=== PATIENT | female | born 1985 | race Caucasian/White ===

== ENCOUNTER 2017-03-16 19:20 | Emergency (ER) | payer BC ==
[~2017-03-16] VITALS: Ht 154.9 cm; Wt 57.6 kg
[~2017-03-16 19:20] MED LIST: ASCA500 PO; CHOL400T PO; IBUP600T44 PO; PRENTAB26 PO
[2017-03-16 19:25] VITALS: TEMP 36.3; Ht 154.9 cm; Wt 57.6 kg
[2017-03-16] MEDS ORDERED: SODIUM CHLORIDE 0.9% 1000ML 1,000 ML IV STA ×3 (19:32→21:58)
[2017-03-16] MEDS ORDERED: ONDANSETRON INJ 2 MG/ML 2 ML VIAL IV STA ×2 (19:32→21:58)
--- NOTE | 2017-03-16 19:39 | EMERGENCY ROOM VISIT NOTE ---
History Report prepared by Shayy: Drew Ibrahim Under the Supervision of: Dr. Joe Nunez D.O. First contact with patient: 19:29 Chief Complaint: CHEST PAIN Stated Complaint: CHEST PAIN,SHORT OF BREATH,FEELS FAINT History of Present Illness The patient is a 32 year old female who presents to the Emergency Room with complaints of intermittent chest pain that began one week prior to arrival. The patient also complains of difficulty catching her breath that onset on week ago as well. She claims that she has been experiencing intermittent unusual heartbeats and palpitations. She has been becoming dizzy with standing lately. She notes that she has a history of bradycardia and syncope from several years ago while she was in high school. Last night she also began to experience lower abdominal pain. She denies any fever, swelling in the extremities, or urinary symptoms. She is currently nauseous. 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 Review of Systems See HPI for pertinent positives & negatives. A total of 10 systems reviewed and were otherwise negative. Past Medical & Surgical Medical Problems: (1) Endometriosis (2) (3) Premature rupture of membranes Surgical Problems: (1) H/O laparoscopy (2) H/O lymph node biopsy (3) S/P cholecystectomy (4) S/P tonsillectomy Family History Diabetes mellitus GRANDFATHER GRANDMOTHER Hypertension GRANDMOTHER Social History Smoking Status: Never Smoker Marital Status: Housing Status: lives with significant other Occupation Status: employed Current/Historical Medications Scheduled Ascorbic Acid (Vitamin C), 500 MG PO QPM Cetirizine (Zyrtec), 10 MG PO QPM Levothyroxine Sodium (Levothyroxine Sodium), 25 MCG PO DAILY Multivit/Min/Iron/Fol Ac/Pren ( Vitamin), 1 TAB PO DAILY Ondasetron Odt (Zofran Odt), 4 MG SL Q6H Ondasetron Odt (Zofran Odt), 4 MG SL Q6H Probiotic Product (Probiotic), 1 CAP PO HS Miscellaneous Medications Cholecalciferol (Vitamin D), 800 PO Allergies Coded Allergies: Sulfa Antibiotics (Verified Allergy, Mild, HIVES, 03/16/17) Sulfa Drugs (Unverified Allergy, Mild, RASH, 03/16/17) Physical Exam Vital Signs Date Time Temp Pulse Resp B/P Pulse Ox O2 Delivery O2 Flow Rate FiO2 03/16/17 23:54 85 18 97/56 98 Room Air 03/16/17 21:54 94 18 107/59 98 Room Air 99 104/55 102 87/57 03/16/17 21:09 88 18 108/59 100 Room Air 03/16/17 20:09 70 18 102/55 100 Room Air 03/16/17 20:08 100 Room Air 03/16/17 20:08 Room Air 03/16/17 19:57 100 Room Air 03/16/17 19:47 72 03/16/17 19:25 36.3 96 24 108/61 100 Room Air Physical Exam GENERAL: Patient is awake, alert, and very anxious appearing. Uncomfortable. EYES: The conjunctivae are clear. The pupils are round and reactive. EARS, NOSE, MOUTH AND THROAT: The nose is without any evidence of any deformity. Mucous membranes are dry tongue is midline NECK: The neck is nontender and supple. RESPIRATORY: Normal respiratory effort is noted there is no evidence of wheezing rhonchi or rales CARDIOVASCULAR: Regular rate and rhythm noted there no murmurs rubs or gallops normal S1 normal S2 GASTROINTESTINAL: The abdomen is soft. Bowel sounds are present in all quadrants. There is tenderness to palpitation diffusely across the abdomen. No specific guarding or rigidity. BACK: No midline tenderness or or step-off noted range of motion in flexion extension as well as rotation no signs of muscle spasm noted MUSCULOSKELETAL/EXTREMITIES: There is no evidence of gross deformity full range of motion is noted in the hips and shoulders SKIN: There is no obvious evidence of any rash. There are no petechiae, pallor or cyanosis noted. NEUROLOGIC: Patient is awake alert and oriented x3. Medical Decision & Procedures ER Provider Diagnostic Interpretation: Radiology results as stated below per my review and radiologist interpretation: ABDOMEN AND PELVIS CT WITH IV CONTRAST CT DOSE: 517.70 mGy.cm HISTORY: Generalized abdominal pain. TECHNIQUE: Multiaxial CT images of the abdomen and pelvis were performed following the use of intravenous contrast. COMPARISON STUDY: None. FINDINGS: No pneumoperitoneum. No pneumatosis. Cholecystectomy. The liver, pancreas, spleen, adrenal glands, and kidneys are unremarkable. No retroperitoneal lymphadenopathy. The bladder, uterus, bilateral adnexa are unremarkable. No bowel wall thickening or obstruction. Fluid-filled nondilated loops of large and small bowel. IMPRESSION: 1. No bowel wall thickening or obstruction. 2. Normal appendix. 3. Cholecystectomy. 4. Fluid-filled loops of nondilated large and small bowel. This may represent a gastroenteritis. Electronically signed by: Sherwin Alvarado M.D. 03/16/2017 9:00 PM Dictated Date/Time: 03/16/2017 8:55 PM CHEST CTA for PULMONARY ARTERIES CT DOSE: HISTORY: Short of breath. Chest pain. TECHNIQUE: Multiaxial CT images of the chest were performed following the intravenous administration of contrast to evaluate the pulmonary arteries. Maximal intensity projection images were also obtained. COMPARISON STUDY: None. FINDINGS: There is a normal caliber thoracic aorta with no evidence for dissection. There is no evidence for pulmonary embolus. No pleural effusions. No pneumothorax. The liver and spleen are unremarkable. No mediastinal or hilar lymphadenopathy. The central airways are patent. A punctate calcified granuloma within the base of the left lower lobe. A few scattered nodules within the lung bases. There are approximately 5 pulmonary nodules. The dominant nodule seen within the right lower lobe on image 101 measures 4 mm. IMPRESSION: No evidence for pulmonary embolus. A few subcentimeter pulmonary nodules measuring up to 4 mm. Please refer to the chart below for recommended follow-up. Please refer to below summary of Fleischner criteria recommendations for follow-up of incidental CT nodules (Marleny Conde, Guidelines for management of small pulmonary nodules detected on CT scans: A statement from the Fleischner Society, Radiology 237: [phone].) SOLID NODULES Solitary nodule size: <6 mm * Low risk patients: no follow-up needed * high risk patients: optional CT at 12 months Solitary nodule size: 6-8 mm * Low risk patients: follow-up at 6-12 months, then consider further follow-up at 18-24 months * high risk patients: initial follow-up CT at 6-12 months and then at 18-24 months if no change Solitary nodule size: >8 mm * either low or high risk patients - consider follow-up CT at 3 months, and/or CT-PET, and/or biopsy Multiple nodules size: <6 mm * Low risk patients: no routine follow-up * high risk patients: optional CT at 12 months Multiple nodules size: 6-8 mm * Low risk patients: follow-up at 3-6 months, then consider further follow-up at 18-24 months * high risk patients: follow-up at 3-6 months, then at 18-24 months if no change Multiple nodules size: >8 mm * Low risk patients: follow-up at 3-6 months, then consider further follow-up at 18-24 months * high risk patients: follow-up at 3-6 months, then at 18-24 months if no change Note: newly detected indeterminate nodule in persons 35 years of age or older. * Low risk patients: minimal or absent history of smoking and/or other known risk factors * high risk patients: history of smoking or of other known risk factors (e.g. first degree relative with lung cancer, or exposure to asbestos, radon, uranium) * if a nodule up to 8 mm is partly solid or is ground glass further follow-up is required after 24 months to exclude possible slow growing adenocarcinoma (SANJUANA) SUBSOLID NODULES Solitary pure ground-glass nodule * nodule size <6 mm - no CT follow-up required * nodule size >=6 mm - follow-up CT at 6-12 months, then every 2 years until 5 years Solitary part-solid nodule * nodule size <6 mm - no CT follow-up required * nodule size >=6 mm - follow-up CT at 3-6 months. If unchanged, and solid component remains <6 mm, then annual follow-up for 5 years Multiple subsolid nodules * nodule size <6 mm - follow-up CT at 3-6 months, consider further follow-up at 2 and 4 years if stable * nodule size >=6 mm - follow-up CT at 3-6 months, subsequent management based on the most suspicious nodule(s) Electronically signed by: Sherwin Alvarado M.D. 03/16/2017 8:55 PM Dictated Date/Time: 03/16/2017 8:47 PM CHEST ONE VIEW PORTABLE HISTORY: EVALUATE RESPIRATORY DISTRESS.DYSPNEA COMPARISON: None. FINDINGS: The lungs are clear. Cardiac silhouette is normal in size. No pleural effusions. No pneumothorax. There are right supraclavicular surgical clips. IMPRESSION: No acute process. Electronically signed by: Sherwin Alvarado M.D. 03/16/2017 8:11 PM Dictated Date/Time: 03/16/2017 8:10 PM Laboratory Results 03/16/17 19:51 Red Blood Count 4.96, Mean Corpuscular Volume 87.9, Mean Corpuscular Hemoglobin 29.2, Mean Corpuscular Hemoglobin Concent 33.3, Mean Platelet Volume 10.3, Neutrophils (%) (Auto) 77.6, Lymphocytes (%) (Auto) 15.7, Monocytes (%) (Auto) 6.0, Eosinophils (%) (Auto) 0.5, Basophils (%) (Auto) 0.0, Neutrophils # (Auto) 3.21, Lymphocytes # (Auto) 0.65, Monocytes # (Auto) 0.25, Eosinophils # (Auto) 0.02, Basophils # (Auto) 0.00 03/16/17 19:51 Test 03/16/17 19:51 03/16/17 19:57 03/16/17 21:07 03/16/17 22:25 White Blood Count 4.14 K/uL (4.8-10.8) Red Blood Count 4.96 M/uL (4.2-5.4) Hemoglobin 14.5 g/dL (12.0-16.0) Hematocrit 43.6 % (37-47) Mean Corpuscular Volume 87.9 fL (80-100) Mean Corpuscular Hemoglobin 29.2 pg (25-34) Mean Corpuscular Hemoglobin Concent 33.3 g/dl (32-36) Platelet Count 240 K/uL (130-400) Mean Platelet Volume 10.3 fL (7.4-10.4) Neutrophils (%) (Auto) 77.6 % Lymphocytes (%) (Auto) 15.7 % Monocytes (%) (Auto) 6.0 % Eosinophils (%) (Auto) 0.5 % Basophils (%) (Auto) 0.0 % Neutrophils # (Auto) 3.21 K/uL (1.4-6.5) Lymphocytes # (Auto) 0.65 K/uL (1.2-3.4) Monocytes # (Auto) 0.25 K/uL (0.11-0.59) Eosinophils # (Auto) 0.02 K/uL (0-0.5) Basophils # (Auto) 0.00 K/uL (0-0.2) RDW Standard Deviation 42.9 fL (36.4-46.3) RDW Coefficient of Variation 13.4 % (11.5-14.5) Immature Granulocyte % (Auto) 0.2 % Immature Granulocyte # (Auto) 0.01 K/uL (0.00-0.02) Prothrombin Time 10.9 SECONDS (9.0-12.0) Prothromb Time International Ratio 1.0 (0.9-1.1) Activated Partial Thromboplast Time 26.1 SECONDS (21.0-31.0) Partial Thromboplastin Ratio 1.0 Est Creatinine Clear Calc Drug Dose 83.9 ml/min Estimated GFR () 114.7 Estimated GFR (Non- 98.9 BUN/Creatinine Ratio 17.0 (10-20) Calcium Level 7.9 mg/dl (8.5-10.1) Magnesium Level 2.2 mg/dl (1.8-2.4) Total Bilirubin 0.4 mg/dl (0.2-1) Aspartate Amino Transf (AST/SGOT) 161 U/L (15-37) Alanine Aminotransferase (ALT/SGPT) 95 U/L (12-78) Alkaline Phosphatase 79 U/L (45-117) Troponin I < 0.015 ng/ml (0-0.045) Total Protein 7.0 gm/dl (6.4-8.2) Albumin 3.8 gm/dl (3.4-5.0) Globulin 3.2 gm/dl (2.5-4.0) Albumin/Globulin Ratio 1.2 (0.9-2) Thyroid Stimulating Hormone (TSH) 1.880 uIu/ml (0.300-4.500) Free Thyroxine 1.14 ng/dl (0.80-1.60) Human Chorionic Gonadotropin, Qual NEG (NEG) Bedside D-Dimer > 450 ng/mlFEU (0-450) Urine Color YELLOW Urine Appearance CLEAR (CLEAR) Urine pH 8.0 (4.5-7.5) Urine Specific [place] 1.023 (1.000-1.030) Urine Protein NEG (NEG) Urine Glucose (UA) NEG (NEG) Urine Ketones NEG (NEG) Urine Occult Blood NEG (NEG) Urine Nitrite NEG (NEG) Urine Bilirubin NEG (NEG) Urine Urobilinogen NEG (NEG) Urine Leukocyte Esterase NEG (NEG) Bedside Lactic Acid Venous 0.77 mmol/L (0.90-1.70) Test 03/16/17 22:29 03/16/17 22:32 Bedside Hemoglobin 12.2 g/dl (12.0-16.0) Bedside Hematocrit 36 % (37-47) Bedside Sodium 142 mEq/L (135-144) Bedside Potassium 3.5 mEq/L (3.3-5.0) Bedside Chloride 106 mEq/L (101-112) Bedside Total CO2 22 mEq/l (24-31) Anion Gap 19.0 mmol/L (16-25) Bedside Blood Urea Nitrogen 11 mg/dl (7-18) Bedside Creatinine 0.7 mg/dl (0.6-1.3) Bedside Glucose (other) 109 mg/dl (70-99) Bedside Ionized Calcium (Dany) 1.02 mmol/l (1.12-1.32) Bedside Troponin I 0.000 ng/ml (0-0.045) Laboratory results per my review. Medications Administered Medications (Trade) Dose Ordered Sig/Stewart Route Start Time Stop Time Status Last Admin Dose Admin Sodium Chloride (Nss 1000ml) 1,000 ml @ 999 mls/hr Q1H1M STAT IV 03/16/17 19:32 03/16/17 20:32 DC 03/16/17 20:02 999 MLS/HR Ondansetron HCl 4 mg 4 mg NOW STAT IV 03/16/17 19:32 03/16/17 19:33 DC 03/16/17 20:01 4 MG Sodium Chloride 1,000 ml @ 999 mls/hr Q1H1M STAT IV 03/16/17 20:24 03/16/17 21:24 DC 03/16/17 21:06 999 MLS/HR Sodium Chloride (Nss 1000ml) 1,000 ml @ 999 mls/hr Q1H1M STAT IV 03/16/17 21:58 03/16/17 22:58 DC 03/16/17 22:35 999 MLS/HR Ondansetron HCl (Zofran Inj) 4 mg NOW STAT IV 03/16/17 21:58 03/16/17 21:59 DC 03/16/17 22:33 4 MG Metoclopramide HCl (Reglan Tab) 5 mg Q6 PRN PO 03/16/17 23:15 03/17/17 01:34 DC 03/17/17 00:06 5 MG ECG Indication: chest pain Rate (beats per minute): 69 Findings: no acute ischemic change, no ectopy ED Course 1929: The patient was evaluated in room B10. A complete history and physical examination were performed. 1931: Ordered Zofran 4 mg IV, Sodium Chloride 1000 mL @ 999 mL/hr IV. 2023: Ordered Sodium Chloride 1000 mL @ 999 mL/hr IV. 2157: Ordered Zofran 4 mg IV, Sodium Chloride 1000 mL @ 999 mL/hr IV. 2212: I discussed the case with Dr. Carlos SANCHEZ Hospitalist at this time, he will evaluate the patient for further treatment. Medical Decision Medication Reconciliation: I attest that I have personally reviewed the patient' s current medications list. Differential diagnosis: Etiologies such as cardiac ischemia, aortic dissection, pulmonary embolism, pneumonia, pneumothorax, musculoskeletal, infections, pericarditis, myocarditis , esophageal rupture, gastrointestinal, as well as others were entertained. Nursing notes reviewed. The patient is a 32-year-old female who presented to the emergency department for an evaluation of palpitations and dizziness. She describes chest discomfort as well as palpitations. 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 She states this is a typical for her. She was found to be normal sinus rhythm with no significant ectopy ST segment abnormalities. The patient's d-dimer is elevated which led to a CT the chest however her abdominal exam did reveal significant tenderness and I was concerned there could be some underlying cause for her palpitations as well as her hypertension. The patient was treated with IV fluids in the emergency department. She was also treated with IV antiemetics. CT the chest did not reveal signs of intrathoracic pathology however she was found have multiple loops of small bowel which were fluid filled which could be consistent with gastritis. I discussed her case with the on-call [facility] hospitalist group. They've agreed to evaluate the patient in emergency department for further management and disposition. I discussed the patient's laboratory and radiographic studies with her. Consults Time Called: [phone] Consulting Physician: Dr. Carlos SANCHEZ Hospitalist Returned Call: [phone] I discussed the case with Dr. Carlos SANCHEZ Hospitalist at this time, he will evaluate the patient for further treatment. Impression Primary Impression: Orthostatic hypotension Additional Impressions: Palpitation Abdominal pain Scribe Attestation The scribe's documentation has been prepared under my direction and personally reviewed by me in its entirety. I confirm that the note above accurately reflects all work, treatment, procedures, and medical decision making performed by me. Departure Information Dispostion Being Evaluated By Hospitalist Prescriptions Ondasetron Odt (ZOFRAN ODT) 4 Mg Tab 4 MG SL Q6H for Nausea, #10 TAB Prov: Luis Rodrigues M.D. 03/16/17 Ondasetron Odt (ZOFRAN ODT) 4 Mg Tab 4 MG SL Q6H for Nausea, #20 TAB Prov: Joe Nunez, 03/16/17 Referrals Sundeep Mata D.O. (PCP) Patient Instructions My [facility] Problem Qualifiers Additional Impressions: Abdominal pain Abdominal location: generalized Qualified Codes: R10.84 - Generalized abdominal pain
[2017-03-16 20:01] LABS: COMPLETE YES; EOS % 0.5 %; HEMATOCRIT 43.6 % (37-47); IG% 0.2 %; LYMPH % 15.7 %; LYMPH ABS # 0.65 K/uL (1.2-3.4); MEAN CELL VOLUME 87.9 fL (80-100); MEAN CORPUSCULAR HEMOGLOBIN 29.2 pg (25-34); MEAN CORPUSCULAR HGB CONC 33.3 g/dl (32-36); MEAN PLATELET VOLUME 10.3 fL (7.4-10.4); NEUT % 77.6 %; PLATELET COUNT 240 K/uL (130-400); RED BLOOD COUNT 4.96 M/uL (4.2-5.4); WHITE BLOOD COUNT 4.14 K/uL (4.8-10.8)
[2017-03-16 20:08] VITALS: O2SAT 100
[2017-03-16 20:11] LABS: PROTHROMBIN TIME (PATIENT) 10.9 SECONDS (9.0-12.0)
--- NOTE | 2017-03-16 20:13 | DIAGNOSTIC IMAGING REPORT ---
CHEST ONE VIEW PORTABLE HISTORY: EVALUATE RESPIRATORY DISTRESS.DYSPNEA COMPARISON: None. FINDINGS: The lungs are clear. Cardiac silhouette is normal in size. No pleural effusions. No pneumothorax. There are right supraclavicular surgical clips. IMPRESSION: No acute process. Electronically signed by: Sherwin Alvarado M.D. 03/16/2017 8:11 PM Dictated Date/Time: 03/16/2017 8:10 PM
[2017-03-16] MEDS ORDERED: CETI10TA84 PO (20:15)
[2017-03-16] MEDS ORDERED: LEVO25TA5 PO (20:15)
[2017-03-16] MEDS ORDERED: MISCCAP80 PO (20:15)
[2017-03-16 20:18] LABS: ALT/SGPT 95 U/L (12-78); AST/SGOT 161 U/L (15-37); BLOOD UREA NITROGEN 14 mg/dl (7-18); CALCIUM 7.9 mg/dl (8.5-10.1); CARBON DIOXIDE 31 mmol/L (21-32); CHLORIDE 106 mmol/L (98-107); GLUCOSE 102 mg/dl (70-99); MAGNESIUM 2.2 mg/dl (1.8-2.4); POTASSIUM 3.3 mmol/L (3.5-5.1); SODIUM 142 mmol/L (136-145)
[2017-03-16 20:25] LABS: PREG INTERNAL NEGATIVE QC NEG CLEAR BACKGROUND; PREG INTERNAL POSITIVE QC POS CONTROL LINE
[2017-03-16 20:29] LABS: ALB/GLOB RATIO 1.2 (0.9-2); ALKALINE PHOSPHATASE 79 U/L (45-117)
[2017-03-16] MEDS ORDERED: OPTIRAY 320 IV PRN (20:30)
[2017-03-16 20:34] LABS: ISTAT CREATININE 0.7 mg/dl (0.6-1.3); ISTAT IONIZED CALCIUM 1.11 mmol/l (1.12-1.32)
--- NOTE | 2017-03-16 20:56 | DIAGNOSTIC IMAGING REPORT ---
CHEST CTA for PULMONARY ARTERIES CT DOSE: HISTORY: Short of breath. Chest pain. TECHNIQUE: Multiaxial CT images of the chest were performed following the intravenous administration of contrast to evaluate the pulmonary arteries. Maximal intensity projection images were also obtained. COMPARISON STUDY: None. FINDINGS: There is a normal caliber thoracic aorta with no evidence for dissection. There is no evidence for pulmonary embolus. No pleural effusions. No pneumothorax. The liver and spleen are unremarkable. No mediastinal or hilar lymphadenopathy. The central airways are patent. A punctate calcified granuloma within the base of the left lower lobe. A few scattered nodules within the lung bases. There are approximately 5 pulmonary nodules. The dominant nodule seen within the right lower lobe on image 101 measures 4 mm. IMPRESSION: No evidence for pulmonary embolus. A few subcentimeter pulmonary nodules measuring up to 4 mm. Please refer to the chart below for recommended follow-up. Please refer to below summary of Fleischner criteria recommendations for follow-up of incidental CT nodules (Marleny Conde, Guidelines for management of small pulmonary nodules detected on CT scans: A statement from the Fleischner Society, Radiology 237: [phone].) SOLID NODULES Solitary nodule size: <6 mm * Low risk patients: no follow-up needed * high risk patients: optional CT at 12 months Solitary nodule size: 6-8 mm * Low risk patients: follow-up at 6-12 months, then consider further follow-up at 18-24 months * high risk patients: initial follow-up CT at 6-12 months and then at 18-24 months if no change Solitary nodule size: >8 mm * either low or high risk patients - consider follow-up CT at 3 months, and/or CT-PET, and/or biopsy Multiple nodules size: <6 mm * Low risk patients: no routine follow-up * high risk patients: optional CT at 12 months Multiple nodules size: 6-8 mm * Low risk patients: follow-up at 3-6 months, then consider further follow-up at 18-24 months * high risk patients: follow-up at 3-6 months, then at 18-24 months if no change Multiple nodules size: >8 mm * Low risk patients: follow-up at 3-6 months, then consider further follow-up at 18-24 months * high risk patients: follow-up at 3-6 months, then at 18-24 months if no change Note: newly detected indeterminate nodule in persons 35 years of age or older. * Low risk patients: minimal or absent history of smoking and/or other known risk factors * high risk patients: history of smoking or of other known risk factors (e.g. first degree relative with lung cancer, or exposure to asbestos, radon, uranium) * if a nodule up to 8 mm is partly solid or is ground glass further follow-up is required after 24 months to exclude possible slow growing adenocarcinoma (SANJUANA) SUBSOLID NODULES Solitary pure ground-glass nodule * nodule size <6 mm - no CT follow-up required * nodule size >=6 mm - follow-up CT at 6-12 months, then every 2 years until 5 years Solitary part-solid nodule * nodule size <6 mm - no CT follow-up required * nodule size >=6 mm - follow-up CT at 3-6 months. If unchanged, and solid component remains <6 mm, then annual follow-up for 5 years Multiple subsolid nodules * nodule size <6 mm - follow-up CT at 3-6 months, consider further follow-up at 2 and 4 years if stable * nodule size >=6 mm - follow-up CT at 3-6 months, subsequent management based on the most suspicious nodule(s) Electronically signed by: Sherwin Alvarado M.D. 03/16/2017 8:55 PM Dictated Date/Time: 03/16/2017 8:47 PM
--- NOTE | 2017-03-16 21:01 | DIAGNOSTIC IMAGING REPORT ---
ABDOMEN AND PELVIS CT WITH IV CONTRAST CT DOSE: 517.70 mGy.cm HISTORY: Generalized abdominal pain. TECHNIQUE: Multiaxial CT images of the abdomen and pelvis were performed following the use of intravenous contrast. COMPARISON STUDY: None. FINDINGS: No pneumoperitoneum. No pneumatosis. Cholecystectomy. The liver, pancreas, spleen, adrenal glands, and kidneys are unremarkable. No retroperitoneal lymphadenopathy. The bladder, uterus, bilateral adnexa are unremarkable. No bowel wall thickening or obstruction. Fluid-filled nondilated loops of large and small bowel. IMPRESSION: 1. No bowel wall thickening or obstruction. 2. Normal appendix. 3. Cholecystectomy. 4. Fluid-filled loops of nondilated large and small bowel. This may represent a gastroenteritis. Electronically signed by: Sherwin Alvarado M.D. 03/16/2017 9:00 PM Dictated Date/Time: 03/16/2017 8:55 PM
[2017-03-16 21:25] LABS: URINE APPEARANCE CLEAR (CLEAR); URINE BILIRUBIN NEG (NEG); URINE COLOR YELLOW; URINE NITRITE NEG (NEG); URINE SPECIFIC GRAVITY 1.023 (1.000-1.030); UROBILINOGEN NEG (NEG)
[2017-03-16 21:31] LABS: MANUAL MICROSCOPIC REQUIRED? NO; REVIEW REQ? NO
[2017-03-16] MEDS ORDERED: ONDA4TAB10 SL ×2 (22:26→23:13)
[2017-03-16 22:43] LABS: ISTAT CREATININE 0.7 mg/dl (0.6-1.3); ISTAT HEMOGLOBIN 12.2 g/dl (12.0-16.0); ISTAT IONIZED CALCIUM 1.02 mmol/l (1.12-1.32)
--- NOTE | 2017-03-16 23:12 | EMERGENCY ROOM VISIT NOTE ---
ED Visit Note This patient was initially seen by Dr. Nunez. His plan was to have the hospitalist service evaluate the patient for possible admission. Should they decide to send her home he requested that the patient be discharged with Zofran. The hospitalist did assess the patient and felt that the patient was okay for discharge as per her own wish. The patient was therefore sent home with Dr. Nunez's discharge instructions and a prescription for Zofran.
[2017-03-16] MEDS ORDERED: METOCLOPRAMIDE HCL 5 MG TAB PO PRN (23:15)
--- NOTE | 2017-03-16 23:24 | Medical Consult ---
Consultation Date of Consultation: March 16, 2017. Attending Physician: Enrique Reason for Consultation: hypotension History of Present Illness This is a 32 yo f that presented to the ED after experiencing sudden dyspnea , presyncope and tachycardia. The episode occurred when she was sitting at [employer] and she first felt the dyspnea. This resolved within a few minutes however because of the intensity of the episode she wanted to be evaluated in the ED. She also is suffering from nausea currently without vomiting. She has had several of these episodes which are short lived and associated with tachycardia over the past couple of weeks. She has never had a syncopal episode. She was worked up when she was 19 for hypotensive episodes however these were associated with bradycardia and the work up was negative. She notes this was a "period of time in my life where I was eating very poorly." No history of arrhythmias in her family. No TIA/ stroke or IL in the family or for her. She is very active and works out on a regular basis. Has a history of hypothyroidism and is taking Synthroid. She is currently taking cetirizine without pseudoephedrine . She was evaluated in the ED and was found to have orthostatic hypotension, no significant abnormalities in her labs. No arrhythmia was noted on the monitor and QTc is WNL. Past Medical/Surgical History Medical Problems: (1) Abdominal pain Status: Acute (2) Orthostatic hypotension Status: Acute (3) Palpitation Status: Acute Family History Diabetes mellitus GRANDFATHER GRANDMOTHER Hypertension GRANDMOTHER Social History Smoking Status: Never Smoker Smokeless Tobacco Use: No Alcohol Use: socially Drug Use: none Marital Status: Housing Status: lives with significant other Occupation Status: employed Allergies Coded Allergies: Sulfa Antibiotics (Verified Allergy, Mild, HIVES, 03/16/17) Sulfa Drugs (Unverified Allergy, Mild, RASH, 03/16/17) Current Inpatient Medications Current Inpatient Medications Medications (Trade) Dose Ordered Sig/Stewart Route Start Time Stop Time Status Last Admin Dose Admin Ioversol (Optiray 320) 100 ml UD PRN IV 03/16/17 20:30 03/20/17 20:29 Metoclopramide HCl (Reglan Tab) 5 mg Q6 PRN PO 03/16/17 23:15 04/15/17 23:14 Review of Systems Constitutional: No chills, No fever Eyes: No worsening of vision ENT: No hearing loss Respiratory: + dyspnea at rest, No cough, No dyspnea on exertion, No shortness of breath, No sputum, No wheezing Cardiovascular: + chest pain, + palpitations Abdomen: + nausea, No constipation, No diarrhea, No pain, No vomiting Musculoskeletal: No joint pain, No muscle pain Genitourinary - Female: No dysuria Neurologic: No balance problems, No numbness/tingling, No weakness Psychiatric: No depression symptoms Endocrine: No fatigue Integumentary: No rash Physical Exam Date Time Temp Pulse Resp B/P Pulse Ox O2 Delivery O2 Flow Rate FiO2 03/16/17 21:54 94 18 107/59 98 Room Air 99 104/55 102 87/57 03/16/17 21:09 88 18 108/59 100 Room Air 03/16/17 20:09 70 18 102/55 100 Room Air 03/16/17 20:08 100 Room Air 03/16/17 20:08 Room Air 03/16/17 19:57 100 Room Air 03/16/17 19:47 72 03/16/17 19:25 36.3 96 24 108/61 100 Room Air General Appearance: no apparent distress Head: normocephalic, atraumatic ENT: normal ENT inspection Neck: supple Respiratory/Chest: normal breath sounds, no respiratory distress, no accessory muscle use Cardiovascular: regular rate, rhythm, no murmur Abdomen/GI: normal bowel sounds, non tender, soft Back: normal inspection Extremities/Musculoskelatal: normal inspection, no pedal edema Neurologic/Psych: alert, normal mood/affect, oriented x 3 Skin: normal color, warm/dry, no rash Lymphatic: no adenopathy Laboratory Results Last 24 Hours Test 03/16/17 19:51 03/16/17 19:57 03/16/17 19:59 03/16/17 21:07 White Blood Count 4.14 K/uL Red Blood Count 4.96 M/uL Hemoglobin 14.5 g/dL Hematocrit 43.6 % Mean Corpuscular Volume 87.9 fL Mean Corpuscular Hemoglobin 29.2 pg Mean Corpuscular Hemoglobin Concent 33.3 g/dl Platelet Count 240 K/uL Mean Platelet Volume 10.3 fL Neutrophils (%) (Auto) 77.6 % Lymphocytes (%) (Auto) 15.7 % Monocytes (%) (Auto) 6.0 % Eosinophils (%) (Auto) 0.5 % Basophils (%) (Auto) 0.0 % Neutrophils # (Auto) 3.21 K/uL Lymphocytes # (Auto) 0.65 K/uL Monocytes # (Auto) 0.25 K/uL Eosinophils # (Auto) 0.02 K/uL Basophils # (Auto) 0.00 K/uL RDW Standard Deviation 42.9 fL RDW Coefficient of Variation 13.4 % Immature Granulocyte % (Auto) 0.2 % Immature Granulocyte # (Auto) 0.01 K/uL Prothrombin Time 10.9 SECONDS Prothromb Time International Ratio 1.0 Activated Partial Thromboplast Time 26.1 SECONDS Partial Thromboplastin Ratio 1.0 Sodium Level 142 mmol/L Potassium Level 3.3 mmol/L Chloride Level 106 mmol/L Carbon Dioxide Level 31 mmol/L Anion Gap 5.0 mmol/L 22.0 mmol/L Blood Urea Nitrogen 14 mg/dl Creatinine 0.80 mg/dl Est Creatinine Clear Calc Drug Dose 83.9 ml/min Estimated GFR () 114.7 Estimated GFR (Non- 98.9 BUN/Creatinine Ratio 17.0 Random Glucose 102 mg/dl Calcium Level 7.9 mg/dl Magnesium Level 2.2 mg/dl Total Bilirubin 0.4 mg/dl Aspartate Amino Transf (AST/SGOT) 161 U/L Alanine Aminotransferase (ALT/SGPT) 95 U/L Alkaline Phosphatase 79 U/L Troponin I < 0.015 ng/ml Total Protein 7.0 gm/dl Albumin 3.8 gm/dl Globulin 3.2 gm/dl Albumin/Globulin Ratio 1.2 Thyroid Stimulating Hormone (TSH) 1.880 uIu/ml Free Thyroxine 1.14 ng/dl Human Chorionic Gonadotropin, Qual NEG Bedside D-Dimer > 450 ng/mlFEU Bedside Hemoglobin 15.0 g/dl Bedside Hematocrit 44 % Bedside Sodium 141 mEq/L Bedside Potassium 3.3 mEq/L Bedside Chloride 99 mEq/L Bedside Total CO2 24 mEq/l Bedside Blood Urea Nitrogen 15 mg/dl Bedside Creatinine 0.7 mg/dl Bedside Glucose (other) 104 mg/dl Bedside Ionized Calcium (Dany) 1.11 mmol/l Urine Color YELLOW Urine Appearance CLEAR Urine pH 8.0 Urine Specific [place] 1.023 Urine Protein NEG Urine Glucose (UA) NEG Urine Ketones NEG Urine Occult Blood NEG Urine Nitrite NEG Urine Bilirubin NEG Urine Urobilinogen NEG Urine Leukocyte Esterase NEG Test 5/28/17 22:25 03/16/17 22:29 03/16/17 22:32 Bedside Lactic Acid Venous 0.77 mmol/L Bedside Hemoglobin 12.2 g/dl Bedside Hematocrit 36 % Bedside Sodium 142 mEq/L Bedside Potassium 3.5 mEq/L Bedside Chloride 106 mEq/L Bedside Total CO2 22 mEq/l Anion Gap 19.0 mmol/L Bedside Blood Urea Nitrogen 11 mg/dl Bedside Creatinine 0.7 mg/dl Bedside Glucose (other) 109 mg/dl Bedside Ionized Calcium (Dany) 1.02 mmol/l Bedside Troponin I 0.000 ng/ml Assessment & Plan This is a 32 yo f that is being evaluated for presyncopal episode associated with tachycardia and hypotension. Differential includes but is not limited to POTS, dehydration,IL, arrhythmia. The patient's 90 minute troponin was negative and patient is at low risk for IL so patient would actually benefit from outpt work up that includes a holter monitor, echo and potentially a stress test. We did discuss the benefit of staying overnight versus work up in the outpt setting and patient would prefer to have close follow up with PCP which is reasonable. She was also advised to refrain from using Zofran or cetirizine as this are arrhythmogenic. She was d/c with a home pack of Reglan. Resident Physician Supervision Note: I was present with Dr. Palacios during the history and exam. I discussed the case with the resident and agree with the findings and plan as documented in the note. Any exceptions or clarifications are listed here: 32 y/o F presenting with palpitations, CP, anxiety - low BP while in ER although this may be baseline Pt in generally good health - exercises rigorously daily OE AAO x 3 S1,2 R CTAB NT, ND, BS+ no CCE P: 2nd set enzymes obtained - pt monitored for a few hours consider outpt echo > stress > Halter Told to avoid Zyrtec or other pro-arrhythmics as structural hrt disease or CAD is unlikely No abnorms on labs or EKG Pt D/Cd for outpt f/u - was offered option of inopt treatment - d/c in conjunction with ER attending Documented By: Jean Claude Gonzalez Additional Copies To Sundeep Mata D.O.
[2017-03-16 23:54] VITALS: BP 97/56; PULSE 85; O2SAT 98
[2017-03-16] MEDS ORDERED: ONDANSETRON HOME PACK 4MG OD TAB ONE (23:57)
[2017-03-17] MEDS ORDERED: EMPTY 8 DRAM VIAL ONE (00:03)
== END 2017-03-17 00:20 | disposition home or self-care (01) ==
LOC: C.EDB 19:21
DX: I95.1 Orthostatic hypotension (principal); R00.2 Palpitations; R10.30 Lower abdominal pain, unspecified; R91.8 Other nonspecific abnormal finding of lung field; N80.9 Endometriosis, unspecified; Z83.3 Family history of diabetes mellitus; Z82.49 Family history of ischemic heart disease and other diseases of the circulatory system

== ENCOUNTER 2017-12-25 19:07 | Emergency (ER) | payer BC ==
[~2017-12-25] VITALS: Ht 154.9 cm; Wt 57.5 kg
[~2017-12-25 19:07] MED LIST changes: -IBUP600T44 PO; +MISCCAP80 PO; +ONDA4TAB10 SL
[2017-12-25 19:11] VITALS: TEMP 36.6; Ht 154.9 cm; Wt 57.5 kg
[2017-12-25] MEDS ORDERED: LEVO25TA5 PO (20:15)
[2017-12-25] MEDS ORDERED: CETI10TA84 PO (20:15)
--- NOTE | 2017-12-25 20:24 | EMERGENCY ROOM VISIT NOTE ---
History Report prepared by Shayy: Deny Mcleod Under the Supervision of: Dr. Scott Mike M.D. First contact with patient: 19:34 Chief Complaint: ILLNESS Stated Complaint: PALPITATIONS, HEADACHES History of Present Illness The patient is a 32 year old female with a past medical history of Kikuchi-Khadar disease, hypothyroidism, pulmonary nodules, and Raynaud's who presents to the ED with a cc of constant bone aches beginning four months ago. Positive night sweats, loss of appetite, leg swelling, headaches, and right arm weakness. Negative fever. The patient states that she was diagnosed with Kikuchi -Khadar disease and has been monitoring her white counts since. She notes that she noticed that her white counts started trending downward six months ago. She reports that her bone aches are mainly located in her mid to lower back , pelvis, and anterior legs. The patient states that her periods used to last a steady 7 days, but now only last for 3 days. She notes that she has a family history of leukemia and thyroid cancer. Source of History: patient Onset: four months ago Position: other (mid to lower back, pelvis, and anterior legs) Quality: ache Timing: constant Associated Symptoms: + headache, No fevers Note: The patient also complains of downward trending white counts, night sweats, loss of appetite, leg swelling, and right arm weakness. Review of Systems See HPI for pertinent positives and negatives. A total of ten systems were reviewed and were otherwise negative. Past Medical & Surgical Medical Problems: (1) Endometriosis (2) Hypothyroidism (3) Kikuchi disease (4) (5) Premature rupture of membranes (6) Pulmonary nodule (7) Raynaud disease Surgical Problems: (1) H/O laparoscopy (2) H/O lymph node biopsy (3) S/P cholecystectomy (4) S/P tonsillectomy Family History Diabetes mellitus GRANDFATHER GRANDMOTHER FHx: leukemia FHx: thyroid cancer Hypertension GRANDMOTHER Social History Smoking Status: Never Smoker Drug Use: none Marital Status: Housing Status: lives with family Occupation Status: employed Current/Historical Medications Scheduled Ascorbic Acid (Vitamin C), 500 MG PO QPM Cetirizine (Zyrtec), 10 MG PO QPM Hydroxyzine Pamoate (Vistaril), 1 CAP PO BID Lactobacillus (Probiotic), 1 CAP PO HS Levothyroxine Sodium (Levothyroxine Sodium), 25 MCG PO DAILY Multivit/Min/Iron/Fol Ac/Pren ( Vitamin), 1 TAB PO DAILY Allergies Coded Allergies: Sulfa Antibiotics (Verified Allergy, Mild, HIVES, 12/25/17) Sulfa Drugs (Unverified Allergy, Mild, RASH, 12/25/17) Physical Exam Vital Signs Date Time Temp Pulse Resp B/P (MAP) Pulse Ox O2 Delivery O2 Flow Rate FiO2 12/25/17 23:22 65 16 101/72 98 12/25/17 22:45 59 18 95/60 98 Room Air 12/25/17 20:48 54 16 106/60 100 Room Air 12/25/17 19:11 36.6 74 18 128/80 100 Room Air Physical Exam GENERAL: Awake, alert, well-appearing, NAD HENT: Normocephalic, atraumatic, no signs of meningismus. EYES: Normal conjunctiva. Sclera non-icteric. NECK: Supple. No nuchal rigidity. FROM. RESPIRATORY: CTAB, no rhonchi, wheezing, crackles CARDIAC: RRR, no MRG ABDOMEN: Soft, NTND, BS+ MSK: No chest wall TTP, no LE edema NEURO: GCS 15, CN 2-12 intact, moves all 4s on command SKIN: No rash or jaundice noted. Medical Decision & Procedures ER Provider Diagnostic Interpretation: Radiology results as stated below per my review and radiologist interpretation: HEAD WITHOUT CONTRAST (CT) FINDINGS: No acute intracranial hemorrhage, midline shift, intracranial mass, hydrocephalus, territorial ischemia or abnormal extra-axial collection. The calvarium is intact. The paranasal sinuses, mastoid air cells, and middle ear cavities are clear. IMPRESSION: No acute intracranial abnormality. The above report was generated using voice recognition software. It may contain grammatical, syntax or spelling errors. Electronically signed by: Rachid Casanova M.D. 12/25/2017 8:49 PM CHEST ONE VIEW PORTABLE FINDINGS: Nodular opacities projecting over the bilateral lung bases suggests nipple shadows. Cardiomediastinal and hilar silhouettes are within normal limits. There is no pneumothorax, pleural effusion, focal airspace consolidation or overt pulmonary edema. The bones of the chest appear grossly intact. Surgical clips project over the right supraclavicular tissues and also within the abdominal right upper quadrant. IMPRESSION: No acute process. The above report was generated using voice recognition software. It may contain grammatical, syntax or spelling errors. Electronically signed by: Rachid Casanova M.D. 12/25/2017 8:28 PM LUMBAR SPINE 2 OR 3 VIEWS FINDINGS: 5 lumbar type nonrib-bearing vertebral segments. No acute fracture, subluxation or significant degenerative changes. No spondylolysis or spondylolisthesis identified. Cholecystectomy clips noted. Soft tissues are unremarkable. IMPRESSION: No acute fracture, subluxation or significant degenerative changes. The above report was generated using voice recognition software. It may contain grammatical, syntax or spelling errors. Electronically signed by: Rachid Casanova M.D. 12/25/2017 11:08 PM Laboratory Results 12/25/17 20:30 Red Blood Count 4.38, Mean Corpuscular Volume 88.1, Mean Corpuscular Hemoglobin 29.7, Mean Corpuscular Hemoglobin Concent 33.7, Mean Platelet Volume 10.0, Neutrophils (%) (Auto) 63.6, Lymphocytes (%) (Auto) 26.2, Monocytes (%) (Auto) 8.3, Eosinophils (%) (Auto) 1.3, Basophils (%) (Auto) 0.4, Neutrophils # (Auto) 3.38, Lymphocytes # (Auto) 1.39, Monocytes # (Auto) 0.44, Eosinophils # (Auto) 0.07, Basophils # (Auto) 0.02 12/25/17 20:30 Test 12/25/17 19:30 12/25/17 20:30 Urine Color YELLOW Urine Appearance CLEAR (CLEAR) Urine pH 5.5 (4.5-7.5) Urine Specific [place] 1.008 (1.000-1.030) Urine Protein NEG (NEG) Urine Glucose (UA) NEG (NEG) Urine Ketones NEG (NEG) Urine Occult Blood NEG (NEG) Urine Nitrite NEG (NEG) Urine Bilirubin NEG (NEG) Urine Urobilinogen NEG (NEG) Urine Leukocyte Esterase NEG (NEG) White Blood Count 5.31 K/uL (4.8-10.8) Red Blood Count 4.38 M/uL (4.2-5.4) Hemoglobin 13.0 g/dL (12.0-16.0) Hematocrit 38.6 % (37-47) Mean Corpuscular Volume 88.1 fL (80-100) Mean Corpuscular Hemoglobin 29.7 pg (25-34) Mean Corpuscular Hemoglobin Concent 33.7 g/dl (32-36) Platelet Count 194 K/uL (130-400) Mean Platelet Volume 10.0 fL (7.4-10.4) Neutrophils (%) (Auto) 63.6 % Lymphocytes (%) (Auto) 26.2 % Monocytes (%) (Auto) 8.3 % Eosinophils (%) (Auto) 1.3 % Basophils (%) (Auto) 0.4 % Neutrophils # (Auto) 3.38 K/uL (1.4-6.5) Lymphocytes # (Auto) 1.39 K/uL (1.2-3.4) Monocytes # (Auto) 0.44 K/uL (0.11-0.59) Eosinophils # (Auto) 0.07 K/uL (0-0.5) Basophils # (Auto) 0.02 K/uL (0-0.2) RDW Standard Deviation 40.4 fL (36.4-46.3) RDW Coefficient of Variation 12.5 % (11.5-14.5) Immature Granulocyte % (Auto) 0.2 % Immature Granulocyte # (Auto) 0.01 K/uL (0.00-0.02) Anion Gap 4.0 mmol/L (3-11) Est Creatinine Clear Calc Drug Dose 82.8 ml/min Estimated GFR () 113.0 Estimated GFR (Non- 97.5 BUN/Creatinine Ratio 22.0 (10-20) Calcium Level 8.2 mg/dl (8.5-10.1) Phosphorus Level 3.0 mg/dl (2.5-4.9) Magnesium Level 1.8 mg/dl (1.8-2.4) Total Bilirubin 0.4 mg/dl (0.2-1) Direct Bilirubin < 0.1 mg/dl (0-0.2) Aspartate Amino Transf (AST/SGOT) 15 U/L (15-37) Alanine Aminotransferase (ALT/SGPT) 25 U/L (12-78) Alkaline Phosphatase 51 U/L (45-117) Total Creatine Kinase 48 U/L (26-192) Total Protein 6.8 gm/dl (6.4-8.2) Albumin 3.9 gm/dl (3.4-5.0) Lipase 105 U/L (73-393) Lyme Disease IgG Antibody NEG (NEG) Influenza Type A (RT-PCR) Neg for Influ A (NEG) Influenza Type B (RT-PCR) Neg for Influ B (NEG) Laboratory results reviewed by me Medications Administered Medications (Trade) Dose Ordered Sig/Stewart Route Start Time Stop Time Status Last Admin Dose Admin Acetaminophen (Tylenol Tab) 1,000 mg NOW STAT PO 12/25/17 21:42 12/25/17 21:43 DC 12/25/17 22:05 1,000 MG Lorazepam (Ativan Tab) 0.5 mg NOW STAT PO 12/25/17 23:11 12/25/17 23:12 DC 12/25/17 23:17 0.5 MG ED Course 2003: The patient was evaluated in room A10. A complete history and physical exam was performed. 2141: I reevaluated and updated the patient. She will be set up with her PCP for follow up. I explained her lab results. She would like some Tylenol. 2315: I reevaluated the patient. Discussed results and discharge instructions: She verbalized understanding and agreement. The patient is ready for discharge. Medical Decision The patient is a 32 year old female with a past medical history of Kikuchi-Khadar disease, hypothyroidism, pulmonary nodules, and Raynaud's who presents to the ED with a cc of constant bone aches beginning four months ago. Positive night sweats, loss of appetite, leg swelling, headaches, and right arm weakness. Negative fever. Differential diagnosis: Etiologies such as viral syndrome, otitis, pharyngitis, pneumonia, influenza, meningitis, urinary tract infection, sepsis, bacteremia, as well as others were entertained. Patient was seen and evaluated the bedside. Patient did present here she was concerned that she has had some persistent bony type pain that she describes. She says it is located in her back as well as in her shins. Patient also has complained of some mild headache. Patient denies any other high risk red flag factors with regard to headache. No signs of meningismus and no fever. Patient denies any unexplained weight loss. Patient has a nonfocal neurologic exam. Patient states that she has been seen by oncology as well as rheumatology but without much improvement in her symptoms or knowledge of what is ailing her. Patient did have blood work completed along with a CT of the brain, chest x-ray, lumbar series. Patient declined any pain medication initially. Patient's blood work is fairly unremarkable. Patient had a normal white blood cell count. Patient had negative CT of the head, chest x-ray, and lumbar spine films. Patient also did have Lyme's and flu testing. Flu is negative. Lyme's was equivocal and was sent for Western blot testing. I did convey all these findings with the patient. Given that the patient has had some persistent symptoms and has not received as much help as she would like in her hometown I did discuss follow-up with 1 of our physicians here in [place]. I did have case management speak to the patient in attempts to help facilitate this. Patient was deemed suitable for outpatient follow-up and treatment at this time. Patient was given strict follow-up, discharge, and return precautions. All questions were answered. Patient was deemed suitable for outpatient follow-up at this time. Patient agreed with the plan of care and was safely discharged home. Head Trauma GCS Score: 15 Medication Reconcilliation Current Medication List: was personally reviewed by me Blood Pressure Screening Patient's blood pressure: Normal blood pressure Blood pressure disposition: Did not require urgent referral Impression Primary Impression: Generalized muscle ache Additional Impressions: Back pain Headache Scribe Attestation The scribe's documentation has been prepared under my direction and personally reviewed by me in its entirety. I confirm that the note above accurately reflects all work, treatment, procedures, and medical decision making performed by me. Departure Information Dispostion Home / Self-Care Prescriptions Hydroxyzine Pamoate (VISTARIL) 25 Mg Cap 1 CAP PO BID for 30 Days, #12 CAP 1 Refill Prov: Scott Mike M.D. 12/25/17 Referrals Sundeep Mata D.O. (PCP) Forms HOME CARE DOCUMENTATION FORM, IMPORTANT VISIT INFORMATION, WORK / SCHOOL INSTRUCTIONS Patient Instructions Chronic Pain Therapies Mind Body, Headache Pain, My [facility] Additional Instructions Please return to the emergency department if you have worsening or recurrent symptoms not amenable to at-home treatment. Please call for a follow-up appointment with her primary care physician. Please take your medications as prescribed. If you have other concerns and/or complaints please feel free to also call your primary care physician's office or return the ED for further evaluation, management, and treatment. You were found to have an elevated blood pressure today (>120 sytolic or >90 diastolic). Per medicare guidelines, you need to follow up with this blood pressure screening with your Primary Care Physician (PCP). For a new PCP call [phone]. You received narcotic or benzodiazepene medication while in the emergency room today. This is an addictive medication that may cause drowziness as well as constipation. Do not drive, operate heavy machinery, or drink alcohol under the influence of this medication. You may take 600 mg Ibuprofen every 6 hours as needed for pain with food for no more than 2 consecutive days. You may take tylenol 1000 mg every 6 hours as needed for pain. You may take motrin and tylenol separately or at the same time. For sleep you may use Benadryl or Vistaril. Please do not take them at the same time. If you do have persistent issues please follow-up with your primary care provider. Please utilize the resources as outlined by the case management associate in order to help with your follow-up for your discomfort. Take your medications as prescribed. You have been examined and treated today on an emergency basis only. This is not a substitute for, or an effort to provide, complete comprehensive medical care. It is impossible to recognize and treat all injuries or illnesses in a single emergency department visit. It is therefore important that you follow up closely with [facility], your PCP, and/or your specialist(s). Call as soon as possible for an appointment. Thank you for your time and consideration. I look forward to speaking with you again soon. Please don't hesitate to call us if you have any questions. Problem Qualifiers Additional Impressions: Back pain Back pain location: low back pain Chronicity: chronic Back pain laterality : unspecified Sciatica presence: without sciatica Qualified Codes: M54.5 - Low back pain; G89.29 - Other chronic pain Headache Headache type: unspecified Headache chronicity pattern: acute headache Intractability: not intractable Qualified Codes: R51 - Headache
--- NOTE | 2017-12-25 20:29 | DIAGNOSTIC IMAGING REPORT ---
CHEST ONE VIEW PORTABLE HISTORY: 32 years-old Female bony pain, ?h/o malignancy acute bone pain COMPARISON: Chest radiograph 03/16/2017 TECHNIQUE: Portable AP view of the chest FINDINGS: Nodular opacities projecting over the bilateral lung bases suggests nipple shadows. Cardiomediastinal and hilar silhouettes are within normal limits. There is no pneumothorax, pleural effusion, focal airspace consolidation or overt pulmonary edema. The bones of the chest appear grossly intact. Surgical clips project over the right supraclavicular tissues and also within the abdominal right upper quadrant. IMPRESSION: No acute process. The above report was generated using voice recognition software. It may contain grammatical, syntax or spelling errors. Electronically signed by: Rachid Casanova M.D. 12/25/2017 8:28 PM Dictated Date/Time: 12/25/2017 8:27 PM
--- NOTE | 2017-12-25 20:51 | DIAGNOSTIC IMAGING REPORT ---
HEAD WITHOUT CONTRAST (CT) CLINICAL HISTORY: 32 years-old Female with HAs, patient w/ h/o prior cancer?, unsure as to dx. Acute headache with weakness TECHNIQUE: Multiple axial CT images of the head were obtained without contrast. A dose lowering technique was utilized adhering to the principles of ALARA. CT DOSE: 537.48 mGy.cm COMPARISON: Head CT 08/09/2016. FINDINGS: No acute intracranial hemorrhage, midline shift, intracranial mass, hydrocephalus, territorial ischemia or abnormal extra-axial collection. The calvarium is intact. The paranasal sinuses, mastoid air cells, and middle ear cavities are clear. IMPRESSION: No acute intracranial abnormality. The above report was generated using voice recognition software. It may contain grammatical, syntax or spelling errors. Electronically signed by: Rachid Casanova M.D. 12/25/2017 8:49 PM Dictated Date/Time: 12/25/2017 8:46 PM
[2017-12-25 21:00] LABS: BASO % 0.4 %; BASO ABS # 0.02 K/uL (0-0.2); EOS % 1.3 %; EOS ABS # 0.07 K/uL (0-0.5); HEMATOCRIT 38.6 % (37-47); IG# 0.01 K/uL (0.00-0.02); LYMPH % 26.2 %; LYMPH ABS # 1.39 K/uL (1.2-3.4); MEAN CELL VOLUME 88.1 fL (80-100); MEAN CORPUSCULAR HEMOGLOBIN 29.7 pg (25-34); MEAN CORPUSCULAR HGB CONC 33.7 g/dl (32-36); MONO % 8.3 %; MONO ABS # 0.44 K/uL (0.11-0.59); NEUT % 63.6 %; NEUT ABS # 3.38 K/uL (1.4-6.5); PLATELET COUNT 194 K/uL (130-400); RED CELL DISTRIBUTION WIDTH CV 12.5 % (11.5-14.5); RED CELL DISTRIBUTION WIDTH SD 40.4 fL (36.4-46.3); WHITE BLOOD COUNT 5.31 K/uL (4.8-10.8)
[2017-12-25] MEDS ORDERED: LACT1CAP6 PO (21:01)
[2017-12-25 21:16] LABS: ALBUMIN 3.9 gm/dl (3.4-5.0); ALT/SGPT 25 U/L (12-78); AST/SGOT 15 U/L (15-37); BLOOD UREA NITROGEN 18 mg/dl (7-18); CALCIUM 8.2 mg/dl (8.5-10.1); CARBON DIOXIDE 27 mmol/L (21-32); CREATININE 0.81 mg/dl (0.60-1.20); GLUCOSE 80 mg/dl (70-99); LIPASE 105 U/L (73-393); POTASSIUM 3.6 mmol/L (3.5-5.1); SODIUM 136 mmol/L (136-145)
[2017-12-25 21:20] LABS: ALKALINE PHOSPHATASE 51 U/L (45-117); TOTAL PROTEIN 6.8 gm/dl (6.4-8.2)
[2017-12-25] MEDS ORDERED: ACETAMINOPHEN 500 MG TAB PO STA (21:42)
[2017-12-25 21:58] LABS: INFLUENZA A PCR Neg for Influ A (NEG); INFLUENZA B PCR Neg for Influ B (NEG)
[2017-12-25] MEDS ORDERED: HYDR25CA PO (23:04)
--- NOTE | 2017-12-25 23:09 | DIAGNOSTIC IMAGING REPORT ---
LUMBAR SPINE 2 OR 3 VIEWS HISTORY: 32 years-old Female chronic back pain chronic lumbar spine pain COMPARISON: CT abdomen and pelvis 03/16/2017 TECHNIQUE: 3 views of the lumbar spine FINDINGS: 5 lumbar type nonrib-bearing vertebral segments. No acute fracture, subluxation or significant degenerative changes. No spondylolysis or spondylolisthesis identified. Cholecystectomy clips noted. Soft tissues are unremarkable. IMPRESSION: No acute fracture, subluxation or significant degenerative changes. The above report was generated using voice recognition software. It may contain grammatical, syntax or spelling errors. Electronically signed by: Rachid Casanova M.D. 12/25/2017 11:08 PM Dictated Date/Time: 12/25/2017 11:06 PM
[2017-12-25] MEDS ORDERED: LORAZEPAM 0.5 MG TAB PO STA (23:11)
[2017-12-25 23:22] VITALS: BP 101/72; PULSE 65; O2SAT 98
== END 2017-12-25 23:20 | disposition home or self-care (01) ==
LOC: C.EDB 19:09 → C.EDA 23:20
DX: M79.1 Myalgia (principal); M54.5 Low back pain; R51 Headache; I88.9 Nonspecific lymphadenitis, unspecified; E03.9 Hypothyroidism, unspecified; R91.8 Other nonspecific abnormal finding of lung field; I73.00 Raynaud's syndrome without gangrene; Z79.899 Other long term (current) drug therapy; Z88.1 Allergy status to other antibiotic agents; Z88.2 Allergy status to sulfonamides; Z80.6 Family history of leukemia; Z80.8 Family history of malignant neoplasm of other organs or systems; Z82.49 Family history of ischemic heart disease and other diseases of the circulatory system; Z83.3 Family history of diabetes mellitus